=== PATIENT | male | born 1955 | race Caucasian/White ===

== ENCOUNTER → 2021-12-23 13:30 | Outpatient (BNVA) | payer MEDICARE, SELFPAY | PROVIDERS: Visit Provider Family Medicine | DX: Z12.5 Encounter for screening for malignant neoplasm of prostate (principal) | CPT/HCPCS: G0103 ==

== ENCOUNTER → 2021-12-25 13:30 | Outpatient (BNVA) | payer MEDICARE, SELFPAY | PROVIDERS: Visit Provider Family Medicine | DX: Z12.5 Encounter for screening for malignant neoplasm of prostate (principal); I10 Essential (primary) hypertension; E34.9 Endocrine disorder, unspecified; E78.5 Hyperlipidemia, unspecified | CPT/HCPCS: 80053; 80061; 84402; 84403 ==

== ENCOUNTER → 2022-01-15 09:24 | Outpatient (BNVA) | payer MEDICARE, SELFPAY | PROVIDERS: PCP Family Medicine; Visit Provider Family Medicine | DX: E11.9 Type 2 diabetes mellitus without complications (principal) | CPT/HCPCS: 83036 ==

== ENCOUNTER → 2022-06-26 13:47 | Outpatient (BNVA) | payer MEDICARE, SELFPAY | PROVIDERS: PCP Family Medicine; Visit Provider Family Medicine | DX: E78.5 Hyperlipidemia, unspecified (principal); I10 Essential (primary) hypertension; E11.9 Type 2 diabetes mellitus without complications; E34.9 Endocrine disorder, unspecified; Z12.11 Encounter for screening for malignant neoplasm of colon; K63.5 Polyp of colon; E78.2 Mixed hyperlipidemia | CPT/HCPCS: 80053; 83036; 84402; 84403 ==

== ENCOUNTER → 2022-07-30 13:32 | Outpatient (BNVA) | payer MEDICARE, SELFPAY | PROVIDERS: PCP Family Medicine; Visit Provider Surgery | DX: Z12.11 Encounter for screening for malignant neoplasm of colon (principal) | CPT/HCPCS: 99024; 99203 ==

== ENCOUNTER 2022-10-08 06:26 | Day surgery (SDC) | payer MEDICARE, SELFPAY ==
[2022-10-06 12:30] VITALS: BMI 27.2
[2022-10-08 06:44] VITALS: BP 160/90; PULSE 76; RESP 17; TEMP 36.1; O2SAT 95
[2022-10-08] MEDS: sodium chloride 0.9% 1,000 ML 30 ML IV (06:59)
[2022-10-08 07:04] LABS: Glucose Point of Care 151 mg/dL (70-110)
--- NOTE | 2022-10-08 07:23 | ANES.PREANE2 ---
Pre-Anesthetic Assessment Height/Weight: Height 1.78 m Weight 86.183 kg Temp Pulse Resp BP Pulse Ox O2 Del Method 97 F L 76 17 160/90 95 Room Air 10/08/22 06:44 10/08/22 06:44 10/08/22 06:44 10/08/22 06:44 10/08/22 06:44 10/08/22 06:44 Preop Diagnosis: screening Operation Date: 10/08/22 07:30 Proposed Procedures p Colonoscopy 03124,Z12.11(Not Applicable) - Daniel Sam, DO Was Beta Germaine taken within 24 hours: N/A Was Clonidine taken within 24 hours: N/A Last intake: Intake Last Liquid Date 10/07/22 Last Liquid Time 22:00 Last Solid Date 10/06/22 Last Solid Time 20:00 Social No alcohol and No tobacco Exam alert, oriented x 3, clear to auscultation bilaterally and regular rate & rhythm Airway Submandibular: within normal limits Cervical ROM: within normal limits Mallampati: Class I Dentition: full History/ROS No significant history except as noted and No significant complaints Pulmonary None reported inhaler usage prn for allergy related symptoms CV/HEM Hypertension None reported Hepatic None reported GI None reported Metabolic Diabetes Mellitus and Hyperlipidemia [facility] [place], [place]/[facility] None reported Neuropsych None reported Anesthetic Plan ASA status: 2 Anesthesia: Anesthesia Evaluation and MAC Risk of > 500 ml blood loss (7ml/kg in children): Yes, adequate IV access and fluids planned Medications/Allergies Home Medications Medication Instructions Recorded Confirmed Last Taken Type aspirin 81 mg tablet,delayed 81 mg PO PRN PRN prn 12/05/21 10/06/22 1 Week Ago History release ~09/29/22 albuterol sulfate 90 mcg/actuation 1 inh inhalation Q4H PRN 12/29/21 10/08/22 2 Months Ago Rx aerosol inhaler (Ventolin HFA) bronchospasm #8.5 grams ~08/08/22 carvedilol 25 mg tablet 25 mg PO BID 90 days #180 tabs 06/26/22 10/06/22 10/07/22 Rx ezetimibe 10 mg tablet 10 mg PO DAILY 90 days #90 tabs 06/26/22 10/06/22 10/07/22 Rx lisinopril 10 1 tab PO BID 90 days #180 tabs 06/26/22 10/06/22 10/07/22 Rx mg-hydrochlorothiazide 12.5 mg tablet metformin 500 mg tablet,extended 500 mg PO BID 90 days #180 tabs 06/26/22 10/08/22 10/07/22 Rx release 24 hr 0800 simvastatin 40 mg tablet 40 mg PO DAILY 90 days #90 tabs 06/26/22 10/06/22 10/07/22 Rx testosterone 1 pump topical DAILY #75 grams 06/26/22 10/06/22 10/07/22 Rx tizanidine 4 mg capsule 4 mg PO Q8H PRN muscle spasticity 09/22/22 10/08/22 1 Week Ago Rx #20 caps ~10/01/22 Allergies Allergy/AdvReac Type Severity Reaction Status Date / Time No Known Drug Allergies Allergy Unknown Unknown Verified 10/08/22 06:45 Current Medications Generic Name Dose Route Start Last Admin Trade Name Freq PRN Reason Stop Dose Admin Sodium Chloride 1,000 mls @ 30 mls/hr 10/08/22 06:45 10/08/22 06:59 Sodium Chloride 0.9% IV 10/09/22 06:44 30 mls/hr .Q24H ADA Administration PFSH Anesthesia Medical History Allergies Hypertension Testosterone deficiency Type 2 diabetes mellitus Surgical History Hx of colonoscopy with polypectomy 5 yrs ago No pertinent past surgical history Social History Smoking and tobacco status: never smoked Alcohol intake: current Alcohol intake frequency: holidays/special occasions only Alcohol type: beer Data Anesthesia Cardiac Studies: No Data to Display
--- NOTE | 2022-10-08 07:39 | PM.HP ---
Providers/Chief Complaint Primary Care Provider: Elizabeth Felipe MD Chief Complaint: Z12.11 History of Present Illness Geremias Saravia is a 66 year old male Medications/Allergies Home Medications Medication Instructions Recorded Confirmed Last Taken Type aspirin 81 mg tablet,delayed 81 mg PO PRN PRN prn 12/05/21 10/06/22 1 Week Ago History release ~09/29/22 albuterol sulfate 90 mcg/actuation 1 inh inhalation Q4H PRN 12/29/21 10/08/22 2 Months Ago Rx aerosol inhaler (Ventolin HFA) bronchospasm #8.5 grams ~08/08/22 carvedilol 25 mg tablet 25 mg PO BID 90 days #180 tabs 06/26/22 10/06/22 10/07/22 Rx ezetimibe 10 mg tablet 10 mg PO DAILY 90 days #90 tabs 06/26/22 10/06/22 10/07/22 Rx lisinopril 10 1 tab PO BID 90 days #180 tabs 06/26/22 10/06/22 10/07/22 Rx mg-hydrochlorothiazide 12.5 mg tablet metformin 500 mg tablet,extended 500 mg PO BID 90 days #180 tabs 06/26/22 10/08/22 10/07/22 Rx release 24 hr 0800 simvastatin 40 mg tablet 40 mg PO DAILY 90 days #90 tabs 06/26/22 10/06/22 10/07/22 Rx testosterone 1 pump topical DAILY #75 grams 06/26/22 10/06/22 10/07/22 Rx tizanidine 4 mg capsule 4 mg PO Q8H PRN muscle spasticity 09/22/22 10/08/22 1 Week Ago Rx #20 caps ~10/01/22 Allergies Allergy/AdvReac Type Severity Reaction Status Date / Time No Known Drug Allergies Allergy Unknown Unknown Verified 10/08/22 06:45 PFSH Acute PFSH: Medical History Allergies Hypertension Testosterone deficiency Type 2 diabetes mellitus Surgical History Hx of colonoscopy with polypectomy 5 yrs ago No pertinent past surgical history Social History Smoking and tobacco status: never smoked Alcohol intake: current Alcohol intake frequency: holidays/special occasions only Alcohol type: beer Vitals/I&O/Wt Last Vital Signs Temp 97 F L 10/08/22 06:44 Pulse 76 10/08/22 06:44 Resp 17 10/08/22 06:44 BP 160/90 10/08/22 06:44 Pulse Ox 95 10/08/22 06:44 O2 Del Method Room Air 10/08/22 06:44 Weight last 48 hrs Weight 190 lb A&P Assessment and plan (1) Encounter for screening for malignant neoplasm of colon: Plan Colonoscopy Attestations Medical Necessity Statement*: home Coding Level of Care Code Acute Code for Chg Fwd Diagnoses Encounter for screening for malignant neoplasm of colon Z12.11
[2022-10-08 08:00] VITALS: BP 117/71; PULSE 78; RESP 18; TEMP 36.1; O2SAT 100
[2022-10-08 08:15] VITALS: BP 133/78; PULSE 69; RESP 18; O2SAT 96
--- NOTE | 2022-10-08 14:29 | ANE.PACU2 ---
Inpatient post-anesthesia follow up: Airway intact: Yes Vital signs: Temperature 97.0 F Pulse Rate 69 Respiratory Rate 18 Blood Pressure 133/78 Pulse Oximetry 96 Oxygen Delivery Me thod Room Air Oxygen Flow Rate Fraction of Inspir ed Oxygen Hydration adequate: Yes Nausea and vomiting: No Pain level: 2 Mental status: Baseline
== END 2022-10-08 08:30 | disposition home or self-care (01) ==
PROVIDERS: PCP Family Medicine; Visit Provider Surgery
PROC: 0DJD8ZZ Inspection of Lower Intestinal Tract, Via Natural or Artificial Opening Endoscopic (ICD-10-PCS; CPT 45378; principal; 2022-10-08 07:30)
DX: Z12.11 Encounter for screening for malignant neoplasm of colon (principal); K57.30 Diverticulosis of large intestine without perforation or abscess without bleeding; K64.8 Other hemorrhoids; E11.9 Type 2 diabetes mellitus without complications; Z79.84 Long term (current) use of oral hypoglycemic drugs
CPT/HCPCS: 36416; 82962; G0121; J2704; J7030

== ENCOUNTER → 2022-11-26 10:57 | Outpatient (BNVA) | payer MEDICARE, SELFPAY | PROVIDERS: PCP Family Medicine; Visit Provider Family Medicine | DX: I10 Essential (primary) hypertension (principal); E78.5 Hyperlipidemia, unspecified; E11.9 Type 2 diabetes mellitus without complications; E34.9 Endocrine disorder, unspecified; E78.2 Mixed hyperlipidemia; Z12.5 Encounter for screening for malignant neoplasm of prostate; Z23 Encounter for immunization | CPT/HCPCS: 80053; 80061; 83036; 84402; 84403; G0103 ==

== ENCOUNTER → 2023-05-28 08:34 | Outpatient (BNVA) | payer MEDICARE, SELFPAY | PROVIDERS: PCP Family Medicine; Referring Provider Family Medicine; Visit Provider Family Medicine | DX: I10 Essential (primary) hypertension (principal); E11.9 Type 2 diabetes mellitus without complications; E78.2 Mixed hyperlipidemia; E34.9 Endocrine disorder, unspecified; J45.20 Mild intermittent asthma, uncomplicated; M12.9 Arthropathy, unspecified | CPT/HCPCS: 80053; 83036; 84402; 84403 ==

== ENCOUNTER → 2023-12-01 09:09 | Outpatient (BNVA) | payer MEDICARE, SELFPAY | PROVIDERS: PCP Family Medicine; Visit Provider Family Medicine | DX: Z12.5 Encounter for screening for malignant neoplasm of prostate (principal); I10 Essential (primary) hypertension; E11.9 Type 2 diabetes mellitus without complications; E78.2 Mixed hyperlipidemia | CPT/HCPCS: 80053; 80061; 83036; 84402; 84403; G0103 ==

== ENCOUNTER → 2024-03-14 08:12 | Outpatient (BNVA) | payer MEDICARE, SELFPAY | PROVIDERS: PCP Family Medicine; Referring Provider Family Medicine; Visit Provider Surgery | DX: K61.1 Rectal abscess (principal) | CPT/HCPCS: 99214 ==

== ENCOUNTER 2024-03-24 08:41 | Day surgery (SDC) | payer MEDICARE, SELFPAY ==
[2024-03-24] VITALS (10 sets, daily range): BP systolic 96–107; BP diastolic 62–69; PULSE 62–73; RESP 15–18; TEMP 36.1–36.4; O2SAT 95–100; BMI 33.3
--- NOTE | 2024-03-24 08:57 | W.PM.OPSUD ---
Surgery/Procedure H&P Update DATE OF PROCEDURE: March 24, 2024 DATE H&P PERFORMED: 03/14/24 H&P UPDATE INFORMATION: I have reviewed H&P completed within last 30 days, I have examined patient prior to procedure and No changes to prior documentation PLANNED PROCEDURE: Operation Date: 03/24/24 10:30 Proposed Procedures p Exam Under Anesthesia 38877, 54828, 56928, K61.1(Not Applicable) - DO savannah Ghotra Perirectal Abscess Incision And Drainage(Not Applicable) - DO savannah Ghotra Fistulotomy Anal(Not Applicable) - Daniel Sam DO
[2024-03-24 09:20] LABS: Glucose Point of Care 183 mg/dL (70-110)
[2024-03-24] MEDS: sodium chloride 0.9% 1,000 ML 30 ML IV (09:21)
--- NOTE | 2024-03-24 09:25 | ANES.PREANE2 ---
Pre-Anesthetic Assessment Height/Weight: Height 1.65 m Weight 90.718 kg Temp Pulse Resp BP Pulse Ox O2 Del Method 97 F L 72 18 99/66 96 Room Air 03/24/24 08:56 03/24/24 08:56 03/24/24 08:56 03/24/24 08:56 03/24/24 08:56 03/24/24 09:00 Operation Date: 03/24/24 10:30 Proposed Procedures p Exam Under Anesthesia 91029, 10144, 61659, K61.1(Not Applicable) - DO savannah Ghotra Perirectal Abscess Incision And Drainage(Not Applicable) - DO savannah Ghotra Fistulotomy Anal(Not Applicable) - DO Kyler Ghotra anesthetic complications: none Was Beta Germaine taken within 24 hours: N/A Was Clonidine taken within 24 hours: N/A Last intake: Intake Last Liquid Date 03/24/24 Last Liquid Time 06:00 Last Solid Date 03/23/24 Last Solid Time 19:00 Social No alcohol and No tobacco Exam alert, oriented x 3, clear to auscultation bilaterally and regular rate & rhythm Airway Mallampati: Class III Dentition: chipped CV/HEM Hypertension Chronic Renal Insufficiency Metabolic Diabetes Mellitus and Hyperlipidemia Anesthetic Plan ASA status: 3 Anesthesia: General Risk of > 500 ml blood loss (7ml/kg in children): No Medications/Allergies Home Medications Medication Instructions Recorded Confirmed Last Taken Type aspirin 81 mg tablet,delayed 81 mg PO PRN 12/05/21 03/23/24 03/23/24 History release albuterol sulfate 90 mcg/actuation 1 inh inhalation Q4H PRN 11/26/22 03/23/24 Unknown Rx aerosol inhaler (Ventolin HFA) bronchospasm #8.5 grams carvedilol 25 mg tablet 25 mg PO BID 90 days #180 tabs 12/01/23 03/23/24 03/24/24 Rx lisinopril 10 1 tab PO BID 90 days #180 tabs 12/01/23 03/23/24 03/23/24 Rx mg-hydrochlorothiazide 12.5 mg tablet metformin 500 mg tablet,extended 500 mg PO BID 90 days #180 tabs 12/01/23 03/23/24 03/23/24 Rx release 24 hr testosterone 3 pump topical DAILY 90 days #225 1003/23/24 03/23/24 Rx grams amoxicillin 875 mg-potassium 1 tab PO BID 10 days #20 tabs 03/14/24 03/23/24 03/23/24 Rx clavulanate 125 mg tablet ezetimibe 10 mg tablet 10 mg PO DAILY 03/23/24 03/23/24 03/23/24 History simvastatin 40 mg tablet 40 mg PO DAILY 03/23/24 03/23/24 03/23/24 History Allergies Allergy/AdvReac Type Severity Reaction Status Date / Time No Known Drug Allergies Allergy Unknown Unknown Verified 03/24/24 08:54 Current Medications Generic Name Dose Route Start Last Admin Trade Name Freq PRN Reason Stop Dose Admin Sodium Chloride 1,000 mls @ 30 mls/hr 03/24/24 09:15 03/24/24 09:21 Sodium Chloride 0.9% IV 03/25/24 09:14 30 mls/hr .Q24H ADA Administration PFSH Anesthesia Medical History Testosterone deficiency Allergies Hypertension Type 2 diabetes mellitus Surgical History Hx of colonoscopy with polypectomy 5 yrs ago No pertinent past surgical history Social History Smoking and tobacco/nicotine status: never used tobacco/nicotine Alcohol intake: current Alcohol intake frequency: holidays/special occasions only Alcohol type: beer Data Anesthesia Cardiac Studies: No Data to Display
[2024-03-24] MEDS: piperacillin-tazobactam 3.375 GM in sodium chloride 0.9% (plus) 50 ML IV (10:21)
[2024-03-24] MEDS: lidocaine-epi 2% PF 1:200,000 20 mL SDV 10 ML XX (11:00)
[2024-03-24] MEDS: BUPivacaine liposome 13.3 mg/mL SDV 20 mL 133 MG INFILTRATI (11:00)
[2024-03-24] MEDS: BUPivacaine 0.5% INJ 30 mL 10 ML INJECTION (11:00)
[2024-03-24] MEDS: thrombin 5,000 unit SDV 5000 UNIT XX (11:00)
--- NOTE | 2024-03-24 11:12 | P.OP_ITS ---
Operative Report Date of procedure: March 24, 2024 Surgeon: Daniel Sam DO Procedure: Pre-op diagnosis: Perirectal abscess Post-op diagnosis: Perirectal abscess Thrombosed external hemorrhoid Grade 2 internal hemorrhoids Procedure done: Examination under anesthesia Hemorrhoidectomy of all 3 hemorrhoidal pillars Incision and drainage of perirectal abscess Implants: Exparel and thrombin-soaked Gelfoam [place] plain packing Specimens removed/disposition: Hemorrhoidal pillars Surgeon: Daniel Sam DO Anesthesia: General and Local Estimated blood loss (mL): 5 Complications: None apparent Procedure: Patient was well in the operative room and general endotracheal ovation was achieved by the department anesthesia. He was then placed into the prone jackknife position. The anus was inspected prepped and draped in usual sterile fashion. A timeout was performed. All present were in agreement. An examination under anesthesia was then performed. Retractor was used to examine the anus. He had a known perirectal abscess in the left anterior position. Just proximal to this perirectal abscess there was also a thrombosed external hemorrhoid. And he had sizable hemorrhoids at all 3 pillars. The largest pillar was the right anterior. Further examination did not identify a fistula to the perirectal abscess. No other pathology. All 3 pillars were taken in the same manner. The exterior most edge of the hemorrhoid was slightly ligated with electrocautery. The harmonic scalpel was then used to excise all 3 hemorrhoidal pillars. There was minimal bleeding. Thrombin-soaked Gelfoam was then placed into the anus. I then used 2% lidocaine with epinephrine to anesthetize the skin overlying the perirectal abscess in the left anterior position. A 10 blade scalpel was used to make a stab incision. Hemostats were then used to probe the abscess cavity and purulence was expelled. Abscess cavity was then irrigated with normal saline. Abscess cavity was packed with plain packing gauze. 20 cc of Exparel was then injected around the anus and the stab incision. Sterile bandage was applied. Patient tolerated procedure well.
--- NOTE | 2024-03-24 11:30 | ANE.PACU2 ---
Inpatient post-anesthesia follow up: Airway intact: Yes Vital signs: Temperature 97.1 F Pulse Rate 62 Respiratory Rate 18 Blood Pressure 107/69 Pulse Oximetry 95 Oxygen Delivery Me thod Room Air Oxygen Flow Rate 6 Fraction of Inspir ed Oxygen Hydration adequate: Yes Nausea and vomiting: No Pain level: 1 Mental status: Baseline
== END 2024-03-24 12:55 | disposition home or self-care (01) ==
PROVIDERS: PCP Family Medicine; Visit Provider Surgery
PROC: (CPT 46260; principal; 2024-03-24 10:30)
PROC: (CPT 46040; 2024-03-24 10:30)
PROC: (CPT 46260; 2024-03-24 10:30)
DX: K64.5 Perianal venous thrombosis (principal); K61.1 Rectal abscess; K64.8 Other hemorrhoids; E78.5 Hyperlipidemia, unspecified; E11.22 Type 2 diabetes mellitus with diabetic chronic kidney disease; I12.9 Hypertensive chronic kidney disease with stage 1 through stage 4 chronic kidney disease, or unspecified chronic kidney disease; N18.9 Chronic kidney disease, unspecified; Z79.899 Other long term (current) drug therapy; Z79.890 Hormone replacement therapy; Z79.82 Long term (current) use of aspirin; Z86.0100 Personal history of colon polyps, unspecified
CPT/HCPCS: 46260; 36416; 82962; 88304; C9290; J0131; J1100; J2371; J2405; J2543; J2704; J3010; J3490; J7030

== ENCOUNTER 2024-03-26 23:02 | Emergency (ER) | payer MEDICARE, SELFPAY ==
[2024-03-26 23:07] VITALS: BP 128/74; PULSE 80; RESP 16; TEMP 36.6; O2SAT 96; BMI 33.3
--- NOTE | 2024-03-26 23:16 | PC.NURSE ---
Bladder scan completed, 266ml urine in bladder
--- NOTE | 2024-03-27 00:42 | XRR_ITS ---
PROCEDURE INFORMATION: Exam: XR Abdomen Exam date and time: 03/27/2024 12:45 AM Age: 68 years old Clinical indication: Prior surgery; Surgery date: 3-7 days post-operative; Surgery type: Hemorrhoidectomy 03/24/2024. C/O constipation over the last few days. TECHNIQUE: Imaging protocol: Radiologic exam of the abdomen. Views: Frontal supine view of the abdomen. 1 View. COMPARISON: No relevant prior studies available. FINDINGS: Gastrointestinal tract: Large fecal load throughout the colon. Dilated bowel loops scattered in the abdomen. Intraperitoneal space: The periphery of the abdomen is partly excluded from view. Limited evaluation for free air. Bones/joints: Unremarkable. XR/XR KUB portable 36136 IMPRESSION: 1. Large fecal load. 2. Dilated bowel loops scattered in the abdomen, most suggestive of ileus. Bowel obstruction can not be excluded.
[2024-03-27 01:15] VITALS: BP 129/76; PULSE 67; RESP 18; O2SAT 97
--- NOTE | 2024-03-27 01:29 | W.ED.MALEGU ---
HPI - Male Genitourinary General: Chief complaint: Urogenital-Male Stated complaint: Post surgery 03/24 can't Pee Time Seen by Provider: 03/27/24 00:41 History of Present Illness: 68-year-old male patient who had surgery for hemorrhoidectomy on , 3 days ago. He notes that he has not had a bowel movement since before his surgery on Thursday. He also says he is having trouble urinating. He was able to urinate a bit before he came back into his ER room. He also had a small bowel movement. Some mild bleeding. No fever. Related Data Home Medications Medication Instructions Recorded Confirmed aspirin 81 mg tablet,delayed 81 mg PO PRN 12/05/21 03/23/24 release ezetimibe 10 mg tablet 10 mg PO DAILY 03/23/24 03/23/24 simvastatin 40 mg tablet 40 mg PO DAILY 03/23/24 03/23/24 Previous Rx's Medication Instructions Recorded albuterol sulfate 90 mcg/actuation 1 inh inhalation Q4H PRN 11/26/22 aerosol inhaler (Ventolin HFA) bronchospasm #8.5 grams carvedilol 25 mg tablet 25 mg PO BID 90 days #180 tabs 12/01/23 lisinopril 10 1 tab PO BID 90 days #180 tabs 12/01/23 mg-hydrochlorothiazide 12.5 mg tablet metformin 500 mg tablet,extended 500 mg PO BID 90 days #180 tabs 12/01/23 release 24 hr testosterone 3 pump topical DAILY 90 days #225 12/01/23 grams amoxicillin 875 mg-potassium 1 tab PO BID 10 days #20 tabs 03/14/24 clavulanate 125 mg tablet amoxicillin 875 mg-potassium 1 tab PO BID #10 tabs 03/24/24 clavulanate 125 mg tablet docusate sodium 100 mg capsule 100 mg PO BID #30 caps 03/24/24 (Colace) hydrocodone 7.5 mg-acetaminophen 1 tab PO Q6H PRN pain #28 tabs 03/24/24 325 mg tablet polyethylene glycol 3350 17 17 g PO DAILY 2 weeks #238 grams 03/24/24 gram/dose oral powder (Miralax) lactulose 20 gram/30 mL oral 20 g (30 mL) PO BID #1,200 mL 03/27/24 solution tamsulosin 0.4 mg capsule 0.4 mg PO DAILY #30 caps 03/27/24 Allergies Allergy/AdvReac Type Severity Reaction Status Date / Time No Known Drug Allergies Allergy Unknown Unknown Verified 03/24/24 08:54 PFS ED PFSH: Medical History Testosterone deficiency Allergies Hypertension Type 2 diabetes mellitus Surgical History Hx of colonoscopy with polypectomy 5 yrs ago No pertinent past surgical history Social History Smoking and tobacco/nicotine status: never used tobacco/nicotine Alcohol intake: current Alcohol intake frequency: holidays/special occasions only Alcohol type: beer Physical Exam Const: COMMON NORMALS: no acute distress GENERAL APPEARANCE: cooperative; not ill appearing and not frail appearing HENMT: COMMON NORMALS: normocephalic, atraumatic and Normal external nose present HEAD & SCALP: normocephalic and atraumatic FACE & SINUS: normal facial exam and face symmetric NOSE: Normal external nose present Eye: COMMON NORMALS: Equal, round and reactive pupils present and EOMs intact bilaterally PUPIL: Yes Equal, round and reactive pupils present Neck/C-Spine: GENERAL: Yes trachea midline Chest: CHEST: Yes Symmetrical chest wall rise Resp: COMMON NORMALS: normal respiratory effort, No retractions, No use of accessory muscles and clear to auscultation bilaterally AUSCULTATION: clear to auscultation bilaterally Cardio: COMMON NORMALS: regular rate and regular rhythm RATE: regular rate RHYTHM: regular rhythm GI: COMMON NORMALS: Normal to inspection, nondistended, normoactive bowel sounds present Extremity: COMMON NORMALS: no pedal edema Neuro: RASHID COMA SCALE: document GCS findings [place] coma scale eye opening: Spontaneous [place] coma scale verbal response: Orientated [place] coma scale motor response: Obey commands Rashid coma scale total score: 15 SENSORY EXAM: Yes extremities (intact) Psych: COMMON NORMALS: speech normal SPEECH: Yes normal speech Skin: COMMON NORMALS: no rashes or lesions noted GENERAL SKIN EXAM: no rashes or lesions noted Course Vital Signs: Vital signs: Vital Signs Temperature 97.9 F 03/26/24 23:07 Pulse Rate 67 03/27/24 01:15 Respiratory Rate 18 03/27/24 01:15 Blood Pressure 129/76 03/27/24 01:15 Pulse Oximetry 97 03/27/24 01:15 Oxygen Delivery Me thod Room Air 03/26/24 23:07 MDM - Male Medical Decision Making KUB shows some constipation. Awaiting a urine. Will repeat a bladder scan post urination for postvoid residual. No evidence of infection with urine. Postvoid residual shows 600+ by bladder scan. Siegel is placed, already 600 cc out. The patient feels improved. He will go home with the Siegel. He will be placed on tamsulosin. He is given a mixture of lactulose, mineral oil, and milk of magnesia for constipation evident on KUB film. He will be placed on lactulose for maintenance until bowel movements are soft. PCP follow-up next week. Return for worsening symptoms. Lab Data Laboratory Results Urine RBC 0-2 /hpf (0-2) 03/27/24 02:03 Urine WBC 0-5 /hpf (0-5) 03/27/24 02:03 Ur Squamous Epith Cells 0-5 /hpf (0-5) 03/27/24 02:03 Amorphous Sediment Not Reportable 03/27/24 02:03 Urine Bacteria None seen /hpf (NONE) 03/27/24 02:03 Hyaline Casts 0-4 /lpf H 03/27/24 02:03 XR interpretation done by ED provider, pending radiology final review Discharge Plan Discharge Patient Disposition: Home Clinical Impression: Acute retention of urine, Constipation Condition: Stable Prescriptions: New lactulose 20 gram/30 mL solution 20 g PO BID Qty: 1200 0RF tamsulosin 0.4 mg capsule 0.4 mg PO DAILY Qty: 30 0RF No Action aspirin 81 mg tablet,delayed release (DR/EC) 81 mg PO PRN albuterol sulfate [Ventolin HFA] 90 mcg/actuation HFA aerosol inhaler 1 inh inhalation Q4H PRN (Reason: bronchospasm) Qty: 8.5 0RF carvedilol 25 mg tablet 25 mg PO BID 90 Days Qty: 180 2RF lisinopril-hydrochlorothiazide 10-12.5 mg tablet 1 tab PO BID 90 Days Qty: 180 2RF metformin 500 mg tablet extended release 24 hr 500 mg PO BID 90 Days Qty: 180 2RF testosterone 20.25 mg/1.25 gram (1.62 %) gel in metered-dose pump 3 pump topical DAILY 90 Days Qty: 225 5RF amoxicillin-pot clavulanate 875-125 mg tablet 1 tab PO BID 10 Days Qty: 20 0RF simvastatin 40 mg tablet 40 mg PO DAILY ezetimibe 10 mg tablet 10 mg PO DAILY amoxicillin-pot clavulanate 875-125 mg tablet 1 tab PO BID Qty: 10 0RF hydrocodone-acetaminophen 7.5-325 mg tablet 1 tab PO Q6H PRN (Reason: pain) Qty: 28 0RF docusate sodium [Colace] 100 mg capsule 100 mg PO BID Qty: 30 0RF polyethylene glycol 3350 [Miralax] 17 gram/dose powder 17 g PO DAILY 14 Days Qty: 238 0RF Discharge Orders: Discharge ED (Routine); Ordered 03/27/24 Ordered By: Flakito Rachel Referrals: Elizabeth Felipe MD [Primary Care Provider] - 4-7 days Patient Instructions: Constipation (ED), Urinary Retention in Men (ED), Opioid Safety, Pain Management Activity Restrictions/Additional Instructions: Call your doctor on Thursday for an appointment this coming week to remove your Siegel. Medication as directed. This may help relieve urinary retention following your Siegel removal. Take the lactulose until your stool becomes regular and soft. Then you may decrease to once daily, then discontinue if they remain so. Return for any worsening symptoms. 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
[2024-03-27 02:21] LABS: Bacteria Urine None Seen /hpf; Hyaline Casts Urine 0-4 /lpf; RBC Urine 0-2 /hpf (0-2); Squamous Epithelial Cell Urine 0-5 /hpf (0-5); WBC Urine 0-5 /hpf (0-5)
[2024-03-27 02:35] LABS: Add Urine Microscopic? YES; Bilirubin Urine Negative (Negative); Blood Urine Negative (Negative); Glucose Urine UA 2+ (Normal); Ketones Urine Trace (Negative); Leukocyte Esterase Urine Negative (Negative); Nitrate Urine Negative (Negative); Protein Urine Negative (Negative); Specific Gravity, Urine 1.021 (1.005-1.030); Urine Appearance Clear (CLEAR); Urine Color Yellow (Yellow); pH Urine 6.5 (5-7)
[2024-03-27 03:26] VITALS: BP 124/76; PULSE 80; RESP 20; O2SAT 98
[2024-03-27] MEDS: magnesium hydroxide 30 mL UDC PO (03:27)
[2024-03-27] MEDS: lactulose oral liq 20 gm/30 mL UDC 30 GM PO (03:27)
[2024-03-27] MEDS: mineral oil 30 mL UDC PO (03:27)
== END 2024-03-27 03:27 | disposition home or self-care (01) ==
PROVIDERS: Emergency Provider Emergency Medicine; PCP Family Medicine
DX: R33.9 Retention of urine, unspecified (principal); K59.00 Constipation, unspecified; Z79.82 Long term (current) use of aspirin; Z79.84 Long term (current) use of oral hypoglycemic drugs; E11.9 Type 2 diabetes mellitus without complications; I10 Essential (primary) hypertension
CPT/HCPCS: 51702; 51798; 74018; 81001; 99284

== ENCOUNTER → 2024-03-28 14:38 | Outpatient (BNVA) | payer MEDICARE, SELFPAY | PROVIDERS: PCP Family Medicine; Visit Provider Surgery | DX: Z98.890 Other specified postprocedural states (principal) | CPT/HCPCS: 99024 ==

== ENCOUNTER → 2024-04-11 14:24 | Outpatient (BNVA) | payer MEDICARE, SELFPAY | PROVIDERS: PCP Family Medicine; Visit Provider Surgery | DX: K61.1 Rectal abscess (principal); Z98.890 Other specified postprocedural states | CPT/HCPCS: 99212 ==

== ENCOUNTER → 2024-05-31 09:11 | Outpatient (BNVA) | payer MEDICARE, SELFPAY | PROVIDERS: PCP Family Medicine; Visit Provider Family Medicine | DX: E34.9 Endocrine disorder, unspecified (principal); I10 Essential (primary) hypertension; E11.9 Type 2 diabetes mellitus without complications; R39.198 Other difficulties with micturition; N18.2 Chronic kidney disease, stage 2 (mild); N40.1 Benign prostatic hyperplasia with lower urinary tract symptoms; N13.8 Other obstructive and reflux uropathy | CPT/HCPCS: 80048; 83036; 84153; 84402; 84403; 85007; 85027 ==

== ENCOUNTER → 2024-11-08 09:53 | Outpatient (BNVA) | payer MEDICARE, SELFPAY | PROVIDERS: PCP Family Medicine; Visit Provider Nurse Practitioner | DX: U07.1 COVID-19 (principal) | CPT/HCPCS: 87426 ==

== ENCOUNTER → 2025-01-18 08:34 | Outpatient (BNVA) | payer MEDICARE, SELFPAY | PROVIDERS: PCP Family Medicine; Visit Provider Family Medicine | DX: E34.9 Endocrine disorder, unspecified (principal); E11.9 Type 2 diabetes mellitus without complications; E78.2 Mixed hyperlipidemia; I10 Essential (primary) hypertension; N18.2 Chronic kidney disease, stage 2 (mild); N40.1 Benign prostatic hyperplasia with lower urinary tract symptoms; N13.8 Other obstructive and reflux uropathy | CPT/HCPCS: 80053; 80061; 83036; 84402; 84403 ==